=== PATIENT | male | born 1980 | race Caucasian/White ===

== ENCOUNTER 2017-05-29 04:07 | Emergency (ER) | payer OTHER, BC ==
--- NOTE | 2017-05-29 04:30 | EDM.PDOC ---
ED HPI GENERAL MEDICAL PROBLEM - General Chief Complaint: ENT Problem Stated Complaint: BLEEDING NOSE Time Seen by Provider: 05/29/17 04:30 Source of Information: Reports: Patient - History of Present Illness INITIAL COMMENTS - FREE TEXT/NARRATIVE: HISTORY AND PHYSICAL: History of present illness: [Patient was at work tonight striking an object with a 6 pound hammer as a raise to hammer he struck himself in the nose he had bleeding from both nares, he presents as such bleeding has resolved No fever nausea vomiting chills sweats pain is 2 out of 10] Review of systems: As per history of present illness and below otherwise all systems reviewed and negative. Past medical history: As per history of present illness and as reviewed below otherwise noncontributory. Surgical history: As per history of present illness and as reviewed below otherwise noncontributory. Social history: No reported history of drug or alcohol abuse. Family history: As per history of present illness and as reviewed below otherwise noncontributory. Physical exam: HEENT: Atraumatic, normocephalic, pupils reactive, negative for conjunctival pallor or scleral icterus, mucous membranes moist, throat clear, neck supple, nontender, trachea midline. Tender over the nasal bridge dried blood in both nares both nares are patent dentition intact no bruising Lungs: Clear to auscultation, breath sounds equal bilaterally, chest nontender. Heart: S1S2, regular, negative for clicks, rubs, or JVD. Abdomen: Soft, nondistended, nontender. Negative for masses or hepatosplenomegaly. Negative for costovertebral tenderness. Pelvis: Stable nontender. Genitourinary: Deferred. Rectal: Deferred. Extremities: Atraumatic, negative for cords or calf pain. Neurovascular unremarkable. Neuro: Awake, alert, oriented. Cranial nerves II through XII unremarkable. Cerebellum unremarkable. Motor and sensory unremarkable throughout. Exam nonfocal. Diagnostics: [Nasal bones] Therapeutics: []Rest ice ibuprofen Follow-up with plastics when necessary Impression: [Epistaxis resolved] Definitive disposition and diagnosis as appropriate pending reevaluation and review of above. nose Pain Score (Numeric/FACES): 8 - Related Data Allergies Allergy/AdvReac Type Severity Reaction Status Date / Time No Known Allergies Allergy Verified 05/29/17 04:11 Home Meds: Home Meds . [No Known Home Meds] 05/29/17 [History] Past Medical History Musculoskeletal History: Reports: Back Pain, Chronic Endocrine/Metabolic History: Reports: Obesity/BMI 30+ Social & Family History - Family History Family Medical History: Noncontributory - Tobacco Use Smoking Status *Q: Never Smoker - Recreational Drug Use Recreational Drug Use: No ED ROS GENERAL - Review of Systems Review Of Systems: ROS reveals no pertinent complaints other than HPI. ED EXAM, GENERAL - Physical Exam Exam: See Below Course - Vital Signs Last Recorded V/S: Last Vital Signs Temp 98 F 05/29/17 04:07 Pulse 113 H 05/29/17 04:07 Resp 18 05/29/17 04:07 BP 128/91 H 05/29/17 04:07 Pulse Ox 94 L 05/29/17 04:07 - Orders/Labs/Meds Orders: Active Orders 24 hr Category Date Time Status Nasal Bone Min 3V [CR] Stat Exams 05/29/17 04:29 Ordered Departure - Departure Time of Disposition: 05:27 Disposition: Home, Self-Care 01 Condition: Good Clinical Impression: Epistaxis - Discharge Information Referrals: PCP,None [Primary Care Provider] - Forms: ED Department Discharge Additional Instructions: Ice 20 minute intervals 3 times daily as needed Ibuprofen 400 mg 3 times daily 7-10 days Return if symptoms persist or worsen Follow-up with plastic surgery, approximately 10 days as needed call for appointment for appropriate follow-up [facility] [address], [address] [place] [address] The following information is given to patients seen in the emergency department who are being discharged to home. This information is to outline your options for follow-up care. We provide all patients seen in our emergency department with a follow-up referral. The need for follow-up, as well as the timing and circumstances, are variable depending upon the specifics of your emergency department visit. If you don't have a primary care physician on staff, we will provide you with a referral. We always advise you to contact your personal physician following an emergency department visit to inform them of the circumstance of the visit and for follow-up with them and/or the need for any referrals to a consulting specialist. The emergency department will also refer you to a specialist when appropriate. This referral assures that you have the opportunity for follow-up care with a specialist. All of these measure are taken in an effort to provide you with optimal care, which includes your follow-up. Under all circumstances we always encourage you to contact your private physician who remains a resource for coordinating your care. When calling for follow-up care, please make the office aware that this follow-up is from your recent emergency room visit. If for any reason you are refused follow-up, please contact the [facility] emergency department at and asked to speak to the emergency department charge nurse. - My Orders Last 24 Hours: My Active Orders 05/29/17 04:29 Nasal Bone Min 3V [CR] Stat - Assessment/Plan Last 24 Hours: My Active Orders 05/29/17 04:29 Nasal Bone Min 3V [CR] Stat
--- NOTE | 2017-05-30 06:48 | CR ---
EXAM DATE: 05/29/17 PATIENT'S AGE: 36 Patient: DELFINA ESPINO Facility: [place], [place] Site . Site : 1980 Study: XRay Head NASAL BONE [id number]/4/2018 4:54:03 AM Ordering Physician: Doctor Mcnally Final Report: Indication: Injury Technique: Three views of the nasal bone Comparison: None available Findings/Impression : A nonacute appearing ovoid lucency in the superior aspect of the nasal septum, nonspecific. Otherwise no displaced nasal bone fractures seen. A lucency at the maxillary nasal spine could be developmental. Grossly intact orbital rims. Maxillary sinus air-fluid levels are not excluded. Correlate clinically, and if indicated, consider followup imaging evaluation. Dictated by Orlin Leonard MD @ 05/29/2017 5:05:29 AM Dictated by: Orlin Leonard MD @ 05/29/2017 05:05:33 (Electronic Signature) Report Signed by Proxy. LENI
== END 2017-05-29 05:40 | disposition home or self-care (01) ==
LOC: MW.ED 04:07
DX: R04.0 Epistaxis (principal); E66.9 Obesity, unspecified; Z68.42 Body mass index [BMI] 45.0-49.9, adult
CPT/HCPCS: 70160; 70160-26; 99282; 99283